=== PATIENT | female | born 1985 | race Caucasian/White ===

== ENCOUNTER 2018-04-01 13:23 | Emergency (ER) | payer OTHER ==
[~2018-04-01] VITALS: Ht 121.9 cm; Wt 49.9 kg
== END 2018-04-01 19:11 | disposition home or self-care (01) ==
LOC: ER 13:23
DX: L56.8 Other specified acute skin changes due to ultraviolet radiation (principal); B02.8 Zoster with other complications

== ENCOUNTER 2018-04-03 09:55 | Outpatient (CLI) | payer OTHER | END 2018-04-03 10:20 | disposition home or self-care (01) | LOC: LAB 09:55 | DX: I11.9 Hypertensive heart disease without heart failure (principal) ==